=== PATIENT | male | born 1970 | race Caucasian/White ===

== ENCOUNTER 2021-09-16 13:51 | Emergency (ER) | payer OTHER ==
[2021-09-16] MEDS ORDERED: MEDROL4 MG PO (17:43)
[2021-09-16] MEDS ORDERED: BACTRIM DS TAB1 EACH PO (17:43)
== END 2021-09-16 18:21 | disposition home or self-care (01) ==
LOC: ER1 13:51
DX: S60.142A Contusion of left ring finger with damage to nail, initial encounter (principal); M54.9 Dorsalgia, unspecified; G89.29 Other chronic pain; X58.XXXA Exposure to other specified factors, initial encounter
CPT/HCPCS: 73130; 96372; 99283; J2930